=== PATIENT | male | born 1935 | race Caucasian/White ===

== ENCOUNTER 2022-07-26 09:34 | Outpatient (REF) | payer MEDICARE, SELFPAY ==
[2022-07-26 11:07] LABS: Anion Gap 15 (12-20); Blood Urea Nitrogen 16 mg/dL (9-16); Calcium 9.4 mg/dL (8.4-10.2); Carbon Dioxide 28 mmol/L (22-29); Chloride 103 mmol/L (96-108); Estimated Glomerular Filt Rate > 60; Glucose Random 113 mg/dL (60-115); Potassium 5.1 mmol/L (3.3-5.1); Sodium 141 mmol/L (135-145)
[2022-07-26 11:31] LABS: T4 Thyroxine 5.8 ug/dL (4.5-12.0); Thyroid Stimulating Hormone 2.87 uIU/mL (0.32-4.0)
[2022-07-30 23:47] LABS: Acetylcholine Receptor Binding <0.30 nmol/L
[2022-08-02 21:42] LABS: Acetylcholine Recep Modulating 4
== END 2022-07-26 09:35 | disposition home or self-care (01) ==
LOC: HO.LAB 09:34
PROVIDERS: PCP Family Medicine; Visit Provider Psychiatry & Neurology Neurology
DX: H53.2 Diplopia (principal)
CPT/HCPCS: 36415; 80048; 83519; 84436; 84443